=== PATIENT | female | born 1985 | race Caucasian/White ===

== ENCOUNTER 2021-02-25 10:55 | Emergency (ER) | payer MEDICAID ==
[~2021-02-25] VITALS: Ht 165.1 cm; Wt 97.5 kg
[2021-02-25 11:36] VITALS: BP 159/71
--- NOTE | 2021-02-25 11:40 | NUR ---
PT CLEAR TO WAIT INSIDE ER LOBBY FOR MSE.
--- NOTE | 2021-02-25 12:58 | NUR ---
LABS DRAWN IN [facility], PT WAS ABLE TO PROVIDE URINE, PUT INTO DIRTY UTILITY. PT RETURNED TO LOBBY.
[2021-02-25 13:05] LABS: BASOPHILS % (AUTO) 0.5 % (0.0-2.0); EOSINOPHILS # (AUTO) 0.1 K/uL (0-0.4); EOSINOPHILS % (AUTO) 1.1 % (0.0-4.0); HEMATOCRIT 35.4 % (36-48); HEMOGLOBIN 12.3 g/dL (12.0-16.0); LYMPHOCYTES # (AUTO) 1.7 K/uL (2.5-16.5); LYMPHOCYTES % (AUTO) 19.6 % (20.5-51.1); MEAN CORPUSCULAR HEMOGLOBIN 31 pg (27-31); MEAN CORPUSCULAR HGB CONC 35 g/dL (33-37); MEAN CORPUSCULAR VOLUME 88.1 fL (80-94); MONOCYTES # (AUTO) 0.5 K/uL (0.8-1.0); MONOCYTES % (AUTO) 6.1 % (1.7-9.3); NEUTROPHILS # (AUTO) 6.5 K/uL (1.8-7.7); NEUTROPHILS % (AUTO) 72.7 % (42.2-75.2); PLATELET COUNT (AUTO) 237 K/uL (140-450); RED BLOOD CELL COUNT(AUTO) 4.02 MIL/uL (4.20-5.40); RED CELL DISTRIBUTION WIDTH 13.4 % (11.6-13.7); WHITE BLOOD COUNT (AUTO) 8.9 K/uL (4.8-10.8)
[2021-02-25 13:17] LABS: ALBUMIN 3.8 g/dL (3.4-5.0); ANION GAP 10.3 (8-16); CARBON DIOXIDE 28.6 mmol/L (21-32); CREATININE 0.6 mg/dL (0.6-1.3); POTASSIUM 3.9 mmol/L (3.5-5.1); TOTAL BILIRUBIN 0.3 mg/dL (0.0-1.0)
[2021-02-25] MEDS ORDERED: OMEP20TC10 PO (14:34)
[2021-02-25 14:44] VITALS: BP 139/91
--- NOTE | 2021-02-25 14:45 | NUR ---
Patient discharged with v/s stable. Written and verbal after care instructions given and explained. Patient alert, oriented and verbalized understanding of instructions. Ambulatory with steady gait. All questions addressed prior to discharge. ID band removed. Patient advised to follow up with PMD. Rx of Omeprazole 20 mg given. Patient educated on indication of medication including possible reaction and side effects. Opportunity to ask questions provided and answered.
== END 2021-02-25 14:45 | disposition home or self-care (01) ==
LOC: MED 10:55
DX: R07.9 Chest pain, unspecified (principal)
CPT/HCPCS: 36415; 71045; 80053; 84484; 85025; 93005; 99285

== ENCOUNTER 2021-07-05 11:31 | Emergency (ER) | payer MEDICAID ==
[~2021-07-05] VITALS: Ht 165.1 cm; Wt 102.1 kg
[~2021-07-05 11:31] MED LIST: OMEP20TC10 PO
[2021-07-05 11:56] VITALS: BP 147/81
[2021-07-05] MEDS ORDERED: ACET-8386 PO (15:44)
[2021-07-05 16:27] VITALS: BP 147/81
--- NOTE | 2021-07-05 16:27 | NUR ---
patient left without discharge papers
--- NOTE | 2021-07-05 16:27 | NUR ---
no nursing interventions provided
== END 2021-07-05 16:27 | disposition home or self-care (01) ==
LOC: MED 11:31
DX: M54.9 Dorsalgia, unspecified (principal); M25.561 Pain in right knee; Z90.49 Acquired absence of other specified parts of digestive tract; Z98.890 Other specified postprocedural states; Z79.899 Other long term (current) drug therapy; Z88.6 Allergy status to analgesic agent
CPT/HCPCS: 72220; 73562; 81002; 81025; 99284

== ENCOUNTER 2021-08-16 15:37 | Emergency (ER) | payer MEDICAID ==
[~2021-08-16] VITALS: Ht 165.1 cm; Wt 100.2 kg
[~2021-08-16 15:37] MED LIST changes: +ACET-8386 PO
[2021-08-16 15:41] VITALS: BP 148/78
--- NOTE | 2021-08-16 15:59 | NUR ---
DR BOLAND EVALUATING PATIENT AT BEDSIDE.
--- NOTE | 2021-08-16 16:15 | NUR ---
36/F BIB SELF. AA&OX4, AMBULATORY W/ STEADY GAIT; PATIENT PRESENTS TO ED WITH C/O SUPRAPUBIC PAIN /10 AND VAGINAL BLEEDING X1DAY. PATIENT REPORTS +N; DENIES V/D/CONSTIPATION, CP, SOB, FEVER, CHILLS. REPORTS POSITIVE AT HOME TEST ON 08/02/21. DENIES PMH ALLERGIES: IBUPROFEN
--- NOTE | 2021-08-16 16:20 | NUR ---
BLOOD COLLECTED AND WALKED TO LAB
--- NOTE | 2021-08-16 16:22 | NUR ---
US AT BEDSIDE
[2021-08-16 17:01] LABS: BASOPHILS # (AUTO) 0.1 K/uL (0.00-0.22); BASOPHILS % (AUTO) 0.5 % (0.0-2.0); EOSINOPHILS # (AUTO) 0.2 K/uL (0-0.4); EOSINOPHILS % (AUTO) 2.4 % (0.0-4.0); HEMATOCRIT 36.5 % (36-48); HEMOGLOBIN 12.3 g/dL (12.0-16.0); LYMPHOCYTES # (AUTO) 2.5 K/uL (2.5-16.5); LYMPHOCYTES % (AUTO) 23.2 % (20.5-51.1); MEAN CORPUSCULAR HEMOGLOBIN 30 pg (27-31); MEAN CORPUSCULAR HGB CONC 34 g/dL (33-37); MEAN CORPUSCULAR VOLUME 89.1 fL (80-94); MONOCYTES # (AUTO) 0.8 K/uL (0.8-1.0); MONOCYTES % (AUTO) 7.6 % (1.7-9.3); NEUTROPHILS % (AUTO) 66.3 % (42.2-75.2); PLATELET COUNT (AUTO) 273 K/uL (140-450); RED CELL DISTRIBUTION WIDTH 13.4 % (11.6-13.7); WHITE BLOOD COUNT (AUTO) 10.6 K/uL (4.8-10.8)
--- NOTE | 2021-08-16 17:11 | NUR ---
PATIENT AMBULATED TO WITH STEADY GAIT
[2021-08-16 17:12] LABS: ALBUMIN 3.9 g/dL (3.4-5.0); CARBON DIOXIDE 25.8 mmol/L (21-32); CREATININE 0.5 mg/dL (0.6-1.3); POTASSIUM 3.8 mmol/L (3.5-5.1); TOTAL BILIRUBIN 0.3 mg/dL (0.0-1.0)
--- NOTE | 2021-08-16 17:13 | NUR ---
PATIENT AMBULATED BACK TO ROOM, STEADY GAIT
[2021-08-16 18:19] VITALS: BP 132/70
--- NOTE | 2021-08-16 18:19 | NUR ---
Patient discharged with v/s stable. Written and verbal after care instructions on vaginal bleeding during during first trimester given and explained. Patient verbalized understanding. Ambulatory with steady gait. Advised to follow up with PMD.
--- NOTE | 2021-08-16 18:34 | NUR ---
The patient's care was reviewed and supervised by Thania Garcia RN.
== END 2021-08-16 18:17 | disposition home or self-care (01) ==
LOC: MED 15:37
DX: O46.8X1 Other antepartum hemorrhage, first trimester (principal); Z34.01 Encounter for supervision of normal first pregnancy, first trimester; O26.891 Other specified pregnancy related conditions, first trimester; Z88.6 Allergy status to analgesic agent
CPT/HCPCS: 36415; 76801; 80053; 81002; 81025; 84702; 85025; 86900; 86901; 99284; Q0092

== ENCOUNTER 2021-08-27 16:02 | Emergency (ER) | payer MEDICAID ==
[~2021-08-27] VITALS: Ht 165.1 cm; Wt 98.4 kg
[2021-08-27 16:07] VITALS: BP 137/84
--- NOTE | 2021-08-27 16:27 | NUR ---
Patient ambulated with steady gait to bed 1.
--- NOTE | 2021-08-27 16:30 | NUR ---
36 y/o F BIB self c/o abnormal bleeding x 2 hours. Patient A&Ox4, ambulatory, 7-8 weeks , states bleeding bright red blood with small clots while urinating. Pt states not using pads and bleeding occurs with urination. Pt also states low abdomen pain 6/10, sharp/constant, non-radiating. Pt states last seen [employer]EL[facility] on 08/25/21 and was told "+sac with no embryo yet." Pt has follow-up [employer] on 09/08/21. Pt denies medications prior to arrival. Denies fatigue, weakness, dizziness, headache, dysuria, N/V/D, fever, chills. Abdomen soft/round/nontender. States scheduled [employer] appointment to start . A0. Bed locked in lowest position, side rails x 1. PMH: Denies ALLERGIES: IBUPROFEN Sx: C-sections, appendectomy, cholecystectomy
--- NOTE | 2021-08-27 18:07 | NUR ---
Lab at bedside
--- NOTE | 2021-08-27 18:10 | NUR ---
Pt c/o abd pain and 6/10 headache, requesting Tylenol. Dr. Powers made aware and orders to be placed.
[2021-08-27] MEDS ORDERED: ACETAMINOPHEN 650 MG/20.3 ML UDC PO ONE (18:15)
[2021-08-27 18:35] LABS: RED BLOOD CELL COUNT(AUTO) 4.07 MIL/uL (4.20-5.40); WHITE BLOOD COUNT (AUTO) 5.7 K/uL (4.8-10.8)
[2021-08-27 18:36] LABS: BASOPHILS % (AUTO) 0.2 % (0.0-2.0); EOSINOPHILS # (AUTO) 0.1 K/uL (0-0.4); EOSINOPHILS % (AUTO) 2.4 % (0.0-4.0); HEMATOCRIT 36.5 % (36-48); HEMOGLOBIN 12.3 g/dL (12.0-16.0); LYMPHOCYTES # (AUTO) 1.5 K/uL (2.5-16.5); LYMPHOCYTES % (AUTO) 26.3 % (20.5-51.1); MEAN CORPUSCULAR HEMOGLOBIN 30 pg (27-31); MEAN CORPUSCULAR HGB CONC 34 g/dL (33-37); MEAN CORPUSCULAR VOLUME 89.8 fL (80-94); MONOCYTES # (AUTO) 0.5 K/uL (0.8-1.0); NEUTROPHILS # (AUTO) 3.6 K/uL (1.8-7.7); NEUTROPHILS % (AUTO) 62.1 % (42.2-75.2); PLATELET COUNT (AUTO) 240 K/uL (140-450); RED CELL DISTRIBUTION WIDTH 13.5 % (11.6-13.7)
--- NOTE | 2021-08-27 18:39 | NUR ---
US tech at bedside
--- NOTE | 2021-08-27 19:07 | NUR ---
States complete relief to pain. 0/10. All pt needs met.
--- NOTE | 2021-08-27 19:08 | NUR ---
Report and transfer of care endorsed to GEORGE Mendoza.
[2021-08-27 19:18] LABS: BILIRUBIN,URINE 1+ (NEGATIVE); BLOOD, URINE 3+ (NEGATIVE); LEUKOCYTE ESTERASE ,URINE NEGATIVE (NEGATIVE); NITRITE, URINE NEGATIVE (NEGATIVE); UGLUCOSE NEGATIVE (NEGATIVE)
[2021-08-27 19:23] LABS: APPEARANCE,URINE CLEAR (CLEAR); COLOR,URINE YELLOW (YELLOW)
[2021-08-27 19:51] LABS: RBC,URINE 0-5 /HPF (0-5); WBC,URINE NONE SEEN /HPF (0-5)
[2021-08-27 19:52] LABS: URINE AMORPHOUS URATE 4+ /HPF (None Seen)
--- NOTE | 2021-08-27 20:15 | NUR ---
ALL RESULTS BACK AND NOTED BY ERMD AND FOR D/C
[2021-08-27 20:40] VITALS: BP 120/80
--- NOTE | 2021-08-27 20:40 | NUR ---
Patient discharged with v/s stable. Written and verbal after care instructions given and explained. Patient verbalized understanding. Ambulatory with steady gait. All questions addressed prior to discharge. Advised to follow up with PMD.
== END 2021-08-27 20:40 | disposition home or self-care (01) ==
LOC: MED 16:02
DX: O20.0 Threatened abortion (principal); Z3A.01 Less than 8 weeks gestation of pregnancy
CPT/HCPCS: 36415; 76817; 81001; 81025; 84702; 85025; 86900; 86901; 99284; Q0092

== ENCOUNTER 2022-04-10 12:24 | Emergency (ER) | payer MEDICAID ==
[~2022-04-10] VITALS: Ht 157.5 cm; Wt 102.5 kg
[~2022-04-10 12:24] MED LIST changes: +OMEP-303 PO; -OMEP20TC10 PO
--- NOTE | 2022-04-10 12:40 | NUR ---
C/O LEFT EAR ACHE X1 WEEK. WAS SEEN BY PCP AND PRESCRIBED AMOXICILLIN BUT PT STATES CONTINUED PAIN ALLERGY: PRIMO PMH: DENIES
[2022-04-10] MEDS ORDERED: OFLO5SOL27 LEFT EAR (12:46)
[2022-04-10] MEDS ORDERED: ACET-10509 PO (12:46)
--- NOTE | 2022-04-10 13:16 | NUR ---
Patient discharged with v/s stable. Written and verbal after care instructions ABOUT ITITIS EXTERNA given and explained. Patient alert, oriented and verbalized understanding of instructions. Ambulatory with steady gait. All questions addressed prior to discharge. ID band removed. Patient advised to follow up with PMD. Rx of TYLENOL EXTRA STRENGTH, FLOXIN OT given. Patient educated on indication of medication including possible reaction and side effects. Opportunity to ask questions provided and answered.
== END 2022-04-10 13:16 | disposition home or self-care (01) ==
LOC: MED 12:24
DX: H60.92 Unspecified otitis externa, left ear (principal); Z79.1 Long term (current) use of non-steroidal anti-inflammatories (NSAID)
CPT/HCPCS: 99283